=== PATIENT | female | born 1960 | race African-American/Black ===

== ENCOUNTER 2017-02-16 18:18 | Emergency (ER) | payer OTHER ==
[2017-02-16 18:40] VITALS: TEMP 98.7
--- NOTE | 2017-02-16 19:43 | ED ---
General Adult HPI - General Chief complaint: Skin/Abscess/Foreign Body Stated complaint: rash Time Seen by Provider: 02/16/17 18:48 Source: patient, RN notes reviewed, old records reviewed Mode of arrival: ambulatory Limitations: no limitations - History of Present Illness Initial comments: This is a 56 year old female with CC of rash on bilateral shins and forearm for approximately 4 weeks. She reports she saw her PCP and was prescribed a cream but rash continues. Denies any fever or chills, she states she has pruritis with rash. She reports that she has scratched the rash and it has appeared to become infected. She states she saw her PCP before it appeared to be infected. Denies previous hisotry of rashes or dermatitis, and received all vaccinations. - Related Data Previous Rx's Medication Instructions Recorded Cephalexin [Keflex] 500 mg PO Q8HR #21 cap 02/16/17 Mupirocin 2% Oint [Bactroban 2% 1 applic TOPICAL TID #1 tube 02/16/17 Oint] Triamcinolone 0.1% Lotion [Kenalog 1 applic TOPICAL TID #60 ml 02/16/17 0.1% Lotion] Allergies Allergy/AdvReac Type Severity Reaction Status Date / Time Unable to Assess Allergy Verified 03/12/14 14:35 Review of Systems ROS Statement: Those systems with pertinent positive or pertinent negative responses have been documented in the HPI. ROS Other: All systems not noted in ROS Statement are negative. Past Medical History Past Medical History: Asthma, GERD/Reflux History of Any Multi-Drug Resistant Organisms: None Reported Past Surgical History: No Surgical Hx Reported Past Psychological History: Anxiety, Depression Smoking Status: Never smoker Past Alcohol Use History: None Reported Past Drug Use History: None Reported General Exam - General Exam Comments Initial Comments: Well appearing 56 yo female. Limitations: no limitations General appearance: alert, in no apparent distress Head exam: Present: atraumatic, normocephalic, normal inspection Eye exam: Present: normal appearance, PERRL, EOMI. Absent: scleral icterus, conjunctival injection, periorbital swelling ENT exam: Present: normal exam, mucous membranes moist Neck exam: Present: normal inspection. Absent: tenderness, meningismus, lymphadenopathy Respiratory exam: Present: normal lung sounds bilaterally. Absent: respiratory distress, wheezes, rales, rhonchi, stridor Cardiovascular Exam: Present: regular rate, normal rhythm, normal heart sounds. Absent: systolic murmur, diastolic murmur, rubs, gallop, clicks GI/Abdominal exam: Present: soft, normal bowel sounds. Absent: distended, tenderness, guarding, rebound, rigid Extremities exam: Present: normal inspection, full ROM, normal capillary refill. Absent: tenderness, pedal edema, joint swelling, calf tenderness Back exam: Present: normal inspection Neurological exam: Present: alert, oriented X3, CN II-XII intact Psychiatric exam: Present: normal affect, normal mood Skin exam: Present: warm, dry, intact, normal color, rash (erythematous atopic dermatitis rosalinda bilateral forearms, and trujillo. Appears similiar to impetigo on left trujillo with crusting from scratching. ) Course Vital Signs 02/16/17 02/16/17 18:38 19:40 Temperature 98.7 F 98.7 F Pulse Rate 81 78 Respiratory 20 18 Rate Blood Pressure 107/69 110/68 O2 Sat by Pulse 100 98 Oximetry Medical Decision Making - Medical Decision Making This is a 56 year old female with CC of rash on bilateral shins and forearm for approximately 4 weeks. She reports she saw her PCP and was prescribed a cream but rash continues. Denies any fever or chills, she states she has pruritis with rash. She reports that she has scratched the rash and it has appeared to become infected. She states she saw her PCP before it appeared to be infected. Denies previous hisotry of rashes or dermatitis, and received all vaccinations. erythematous atopic dermatitis rosalinda bilateral forearms, and trujillo. Appears similiar to impetigo on left trujillo with crusting from scratching. Patient will be started on mupirocin, triamcinolone and keflex. Patient understands treatment plan and will comply. Disposition Clinical Impression: Dermatitis Disposition: HOME SELF-CARE Condition: Good Instructions: Dermatitis (ED) Additional Instructions: Follow-up with her primary care provider within the next 2-3 days. Patient denies to apply the ointment as directed. Also take the antibiotic prescription. Return to the emergency department if any symptoms occur. Prescriptions: Cephalexin [Keflex] 500 mg PO Q8HR #21 cap Mupirocin 2% Oint [Bactroban 2% Oint] 1 applic TOPICAL TID #1 tube Triamcinolone 0.1% Lotion [Kenalog 0.1% Lotion] 1 applic TOPICAL TID #60 ml Referrals: Chau Mendosa MD [Primary Care Provider] - 1-2 days Time of Disposition: 19:38
[2017-02-16 20:01] VITALS: BP 110/68; PULSE 78; RESP 18
--- NOTE | 2017-02-18 07:37 | CDI ---
Documentation Clarification OP Dear DEBORAH Hernández: Please do addendum to ED report for HPI and physical exam. Thank you, Stacy Quijano Beef Pusher If you have any question, Please contact railway station manager at [phone] [facility]
== END 2017-02-16 19:40 | disposition home or self-care (01) ==
LOC: EC 18:18
DX: L30.9 Dermatitis, unspecified (principal)
CPT/HCPCS: 99283

== ENCOUNTER → 2017-02-20 | Outpatient (CLI) | payer OTHER ==
[2017-02-21 04:27] LABS: Clam IgE <0.10 kU/L; Egg White IgE 0.93 kU/L; Peanut IgE <0.10 kU/L; Scallop IgE <0.10 kU/L; Soybean IgE 0.11 kU/L
[2017-02-21 04:29] LABS: Alternaria alternata IgE <0.10 kU/L; Aspergillus fumagatus IgE <0.10 kU/L; Cat Epith & Dander IgE <0.10 kU/L; Cladosporian herbarum IgE <0.10 kU/L; Dermato. farinae IgE <0.10 kU/L; Maple (Box Elder) IgE 0.25 kU/L; Orchard Grs(Cocksfoot) IgE <0.10 kU/L; Ragweed,Common IgE 3.13 kU/L
== END | disposition home or self-care (01) ==
LOC: LABWHC1 15:51
PROVIDERS: ATTEND Family Medicine
DX: R21 Rash and other nonspecific skin eruption (principal)
CPT/HCPCS: 36415; 82785; 86003

== ENCOUNTER → 2017-04-29 | Outpatient (CLI) | payer OTHER ==
--- NOTE | 2017-05-01 08:56 | MM ---
Reason for exam: screening (asymptomatic). Last mammogram was performed 3 years and 6 months ago. History: Patient is postmenopausal. Physical Findings: A clinical breast exam by your physician is recommended on an annual basis and results should be correlated with mammographic findings. MG Screening Mammo w CAD Bilateral CC and MLO view(s) were taken. Prior study comparison: October 28, 2013, mammogram, performed at [facility]. January 28, 2006, mammogram, performed at [facility]. There are scattered fibroglandular densities. There is chronic nodularity in the right breast. No significant changes when compared with prior studies. ASSESSMENT: Negative, BI-RAD 1 RECOMMENDATION: Routine screening mammogram of both breasts in 1 year.
== END | disposition home or self-care (01) ==
LOC: RADMAMWWP 16:20
PROVIDERS: ATTEND Family Medicine
DX: Z12.31 Encounter for screening mammogram for malignant neoplasm of breast (principal)